=== PATIENT | male | born 1995 | race African-American/Black ===

== ENCOUNTER 2021-02-21 15:13 | Emergency (ER) | payer OTHER, SELFPAY ==
[2021-02-21 15:38] VITALS: BP 138/69; PULSE 72; RESP 16; TEMP 37; O2SAT 99
--- NOTE | 2021-02-21 16:14 | ED.UPPEXIN ---
HPI - Extremity Injury (Upper) General Chief Complaint: Extremity Injury, Upper Stated Complaint: Rt shoulder pain Time Seen by Provider: 02/21/21 15:55 Source: patient and RN notes reviewed Mode of arrival: ambulatory Limitations: no limitations History of Present Illness HPI narrative: Patient presents today complaining of 4-day history of right shoulder pain. States he may have injured his shoulder while playing basketball. He states he ran into a wall while trying to stop himself he may have injured his shoulder. Denies numbness or tingling in the arm or hand. Pain increases with movement. He currently rates his pain 3/10 and has been taking ibuprofen with mild relief. 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 MD complaint: injury to: right and shoulder Related Data Home Medications Medication Instructions Recorded Confirmed albuterol 2 mcg INHALATION PRN PRN 02/21/21 02/21/21 Allergies Allergy/AdvReac Type Severity Reaction Status Date / Time No Known Allergies Allergy Verified 02/21/21 15:42 Review of Systems Review of Systems: CONSTITUTIONAL: Denies body aches, fever, chills, or sweats. EYES: Denies visual changes, redness, or discharge. ENT: Denies rhinorrhea, congestion, sore throat, or otalgia. CARDIOVASCULAR: Denies chest pain, palpitations, or edema. RESPIRATORY: Denies cough or dyspnea. GASTROINTESTINAL: Denies abdominal pain, nausea, vomiting, or diarrhea. GENITOURINARY: Denies dysuria or hematuria. SKIN: Denies rash, itching, or wounds. MUSCULOSKELETAL: Denies back pain, or myalgia.+ Right shoulder pain NEUROLOGIC: Denies headache, numbness, tingling, or weakness. PSYCH: Denies depression or anxiety. PMFSH Comments At time of signature, I have reviewed and agree with nursing past medical, surgical, social and family history unless otherwise noted. Please see nursing chart for further information. There is no relevant family history pertinent to the presenting complaint Exam Narrative: GENERAL: Well-appearing, well-nourished, and in no acute distress. HEAD: Normocephalic, atraumatic. EYES: EOMI. No redness or drainage. Conjunctivae normal. ENT: Mucous membranes pink and moist. NECK: Normal AROM. CHEST: No respiratory distress. EXTREMITIES: Right shoulder: Patient localizes pain to the anterior shoulder, but is nontender to the entire shoulder. No edema, deformity, crepitus. Full AROM without increased pain, except when he raises his arm above his head. No weakness. Handgrips equal and strong. Distal sensation intact. Capillary refill normal. Radial pulse normal. SKIN: Warm, dry, no rash. Capillary refill normal. Normal skin turgor. NEURO: No focal deficits. Alert and oriented x3. Gait steady. PSYCH: Normal affect. No signs of depression or anxiety. Course Vital Signs Vital signs: Vital Signs Temperature 98.6 F 02/21/21 15:38 Pulse Rate 72 02/21/21 15:38 Respiratory Rate 16 02/21/21 15:38 Blood Pressure 138/69 02/21/21 15:38 Pulse Oximetry 99 02/21/21 15:38 Temperature 98.6 F 02/21/21 15:38 Pulse Rate 72 02/21/21 15:38 Respiratory Rate 16 02/21/21 15:38 Blood Pressure 138/69 02/21/21 15:38 Pulse Oximetry 99 02/21/21 15:38 Reviewed. Pt has been instructed to follow up with his PCP regarding his elevated blood pressure today. MDM - Extremity Injury (Upper) Differential Diagnosis Differential diagnosis: Likely other (Shoulder strain, rotator cuff tendinitis, rotator cuff tear) Critical Care Time Critical Care Time Critical Care Time: No Discharge Plan Discharge Clinical Impression: Right shoulder strain Qualifiers: Encounter type: initial encounter Qualified Code(s): S46.911A - Strain of unspecified muscle, fascia and tendon at shoulder and upper arm level, right arm, initial encounter Patient Disposition: Home, Self-Care Condition: Stable Instructions: Rotator Cuff Injury (ED) Additional Inst
== END 2021-02-21 16:22 | disposition home or self-care (01) ==
PROVIDERS: Emergency Provider Nurse Practitioner
DX: S46.911A Strain of unspecified muscle, fascia and tendon at shoulder and upper arm level, right arm, initial encounter (principal); X58.XXXA Exposure to other specified factors, initial encounter; J45.909 Unspecified asthma, uncomplicated
CPT/HCPCS: 99203; G0463